=== PATIENT | male | born 1935 | race Caucasian/White ===

== ENCOUNTER 2021-01-28 17:29 | Inpatient (IN) ==
[2021-01-28] MEDS ORDERED: Isovue-370 500 ML BOTTLE IVP ONE (17:39)
[2021-01-28 17:49] LABS: Hematocrit 40.8 % (37.5-50.1); Hemoglobin 12.7 g/dL (12.9-16.9); Mean Corpuscular HGB Conc 31.1 g/dL (31.6-35.5); Mean Corpuscular Hemoglobin 29.9 pg (28.0-33.3); Platelet Count 258 K/mcL (140-400); Red Blood Count 4.25 M/mcL (4.19-5.50); Red Cell Distribution Width 14.1 % (11.5-14.5); White Blood Count 9.8 K/mcL (4.3-11.1)
[2021-01-28 17:56] LABS: INR 1.1; Prothrombin Time 12.5 Seconds (9.4-12.1)
[2021-01-28 17:58] LABS: Activated Partial Thrombo Time 31.8 Seconds (26.0-36.0)
[2021-01-28 18:05] LABS: BUN/Creatinine Ratio 16 (6-26); Blood Urea Nitrogen 33 mg/dL (8-23); Calcium 9.4 mg/dL (8.6-10.3); Carbon Dioxide 21 mEq/L (23-29); Chloride 104 mEq/L (98-107); Glucose 178 mg/dL (70-105); Osmolality,Calculated 292 (280-300); Potassium 4.8 mEq/L (3.5-5.1); Sodium 135 mEq/L (136-145); eGFR For African Americans 38 (> 60); eGFR For Non-African Americans 31 (> 60)
[2021-01-28 18:08] LABS: Troponin I < 0.03 ng/mL (< 0.04)
[2021-01-28] MEDS ORDERED: 0.9 % Sodium Chloride 1,000 ML IVC ONE (18:31)
[2021-01-28 18:37] LABS: Bilirubin,Urine Negative (Negative); Blood,Urine Negative (Negative); Clarity,Urine Clear (Clear); Color,Urine Light-Yellow (Yellow); Glucose,Urine (UA) 300 mg/dL (Normal); Hyaline Casts,Urine Few per lpf (None Seen); Ketones,Urine Negative (Negative); Leukocyte Esterase,Urine Negative (Negative); Mucus,Urine Few per lpf (None-Few); Nitrite,Urine Negative (Negative); PH,Urine 6.5 pH Units (5.0-8.0); Protein,Urine Negative (Neg-Trace); Specific Gravity,Urine > 1.030 (1.010-1.025); Urobilinogen,Urine Normal (Normal); WBC,Urine 0-3 per hpf (0-3)
[2021-01-28] MEDS ORDERED: *HR* Dextrose 50 % in Water (Vial) 50 ML VIAL IVP PRN (19:40)
[2021-01-28] MEDS ORDERED: D5% in Water 1,000 ML IVC PRN (19:40)
[2021-01-28] MEDS ORDERED: Dextrose Gel 15 GM/37.5 ML TUBE PO PRN ×2 (19:40)
[2021-01-28] MEDS ORDERED: Ondansetron 4 MG/2 ML VIAL IVP PRN (19:42)
[2021-01-28] MEDS ORDERED: Acetaminophen 325 MG TABLET PO PRN (19:42)
[2021-01-28] MEDS ORDERED: Naloxone 0.4 MG/ML INJ IVP PRN (19:42)
[2021-01-28] MEDS ORDERED: Melatonin 3 MG TABLET PO PRN (19:42)
[2021-01-28] MEDS ORDERED: Furosemide 20 MG/2 ML VIAL IVP ONE (20:28)
[2021-01-28] MEDS ORDERED: *HR* Metoprolol 5 MG/5 ML VIAL IVP PRN (20:39)
[2021-01-28 20:47] LABS: Estimated Average Glucose 180 mg/dl; Hemoglobin A1C 7.9 %
[2021-01-28] MEDS: Insulin LISPRO 300 UNITS/3 ML VIAL SUBQ SCH (20:48)
[2021-01-29 00:35] LABS: Basophils % 0.3 %; Eosinophils # 0.9 K/mcL (0.0-0.6); Eosinophils % 10.1 %; Hematocrit 37.4 % (37.5-50.1); Hemoglobin 11.6 g/dL (12.9-16.9); Immature Granulocytes % 0.6 % (0-4); Lymphocytes # 2.6 K/mcL (0.6-4.6); Lymphocytes % 29.3 %; Mean Corpuscular Hemoglobin 29.4 pg (28.0-33.3); Mean Corpuscular Volume 94.9 fL (83.0-100.0); Mean Platelet Volume 8.9 fL (9.4-12.4); Monocytes # 0.8 K/mcL (0.0-1.3); Monocytes % 9.2 %; Neutrophils # 4.5 K/mcL (1.6-8.9); Platelet Count 208 K/mcL (140-400); Red Blood Count 3.94 M/mcL (4.19-5.50); Red Cell Distribution Width 14.1 % (11.5-14.5); Segmented Neutrophils % 50.5 %; White Blood Count 8.9 K/mcL (4.3-11.1)
[2021-01-29 00:54] LABS: Calcium 9.1 mg/dL (8.6-10.3); Chol/HDL Ratio 6.6 (0-4.9); Potassium 4.6 mEq/L (3.5-5.1)
[2021-01-29] MEDS: Insulin LISPRO 300 UNITS/3 ML VIAL SUBQ SCH ×4 (07:28→20:51)
[2021-01-29] MEDS ORDERED: Perflutren Lipid Microsphere 1.3 ML in 0.9 % Sodium Chloride 8.7 ML IVP PRN ×2 (09:00→17:20)
[2021-01-29] MEDS: Aspirin Enteric Coated 81 MG Tablet PO SCH (09:33)
[2021-01-29] MEDS: amLODIPine 5 MG TABLET PO SCH (14:32)
[2021-01-30 05:36] LABS: Hematocrit 39.6 % (37.5-50.1); Hemoglobin 12.6 g/dL (12.9-16.9); Mean Corpuscular HGB Conc 31.8 g/dL (31.6-35.5); Mean Corpuscular Hemoglobin 30.2 pg (28.0-33.3); Mean Platelet Volume 8.9 fL (9.4-12.4); Platelet Count 209 K/mcL (140-400); Red Blood Count 4.17 M/mcL (4.19-5.50); Red Cell Distribution Width 14.1 % (11.5-14.5); White Blood Count 8.9 K/mcL (4.3-11.1)
[2021-01-30 05:56] LABS: Albumin/Globulin Ratio 1.5 (1.1-2.2); Bilirubin,Total 0.4 mg/dL (0.3-1.0); Calcium 9.5 mg/dL (8.6-10.3); Chol/HDL Ratio 7.1 (0-4.9); Globulin 2.7 g/dL (2.4-3.5); Potassium 4.6 mEq/L (3.5-5.1); Total Protein 6.7 g/dL (6.4-8.9)
[2021-01-30] MEDS: Insulin LISPRO 300 UNITS/3 ML VIAL SUBQ SCH ×2 (07:30→12:07)
[2021-01-30] MEDS ORDERED: Finasteride 5 MG TABLET PO SCH (09:00)
[2021-01-30] MEDS ORDERED: Fenofibrate 54 MG TABLET PO SCH (09:00)
[2021-01-30] MEDS ORDERED: lisinopriL 20 MG TABLET PO SCH (09:00)
[2021-01-30 10:05] LABS: Adenovirus Not Detected (Not Detect); Bordetella Pertussis Not Detected (Not Detect); Chlamydophila pneumoniae Not Detected (Not Detect); Coronavirus 229E Not Detected (Not Detect); Coronavirus HKU1 Not Detected (Not Detect); Coronavirus NL63 Not Detected (Not Detect); Coronavirus OC43 Not Detected (Not Detect); Human Metapneumovirus Not Detected (Not Detect); Human Rhinovirus/Enterovirus Not Detected (Not Detect); Influenza A Subtype 2009 H1 Not Detected (Not Detect); Influenza B Not Detected (Not Detect); Mycoplasma pneumoniae Not Detected (Not Detect); Parainfluenza Virus 1 Not Detected (Not Detect); Parainfluenza Virus 2 Not Detected (Not Detect); Parainfluenza Virus 3 Not Detected (Not Detect); Parainfluenza Virus 4 Not Detected (Not Detect); Respiratory Syncytial Virus Not Detected (Not Detect); SARS-CoV-2 Not Detected (Not Detect)
[2021-01-30] MEDS ORDERED: Lidocaine Viscous Oral Soln 15 ML SOLUTION MM PRN (10:26)
[2021-01-30] MEDS ORDERED: 0.9 % Sodium Chloride 500 ML IVC ONE (10:26)
[2021-01-30] MEDS ORDERED: *HR* FentaNYL (PF) 100 MCG/2 ML VIAL IVP PRN (10:26)
[2021-01-30] MEDS ORDERED: *HR* Midazolam HCl 5 MG/5 ML VIAL IVP PRN (10:26)
[2021-01-30] MEDS: Aspirin Enteric Coated 81 MG Tablet PO SCH (12:05)
[2021-01-30] MEDS: amLODIPine 5 MG TABLET PO SCH (12:05)
[2021-01-30 15:09] VITALS: BP 118/75
[2021-01-30] MEDS ORDERED: Apixaban 5 MG TABLET PO SCH (21:00)
== END 2021-01-30 16:34 | disposition home or self-care (01) | DRG 65 ==
LOC: 3BNU 17:29 → EMEROOARM 17:29 → SUATTDRO 19:35 → 3BNU 20:21
PROVIDERS: ADMIT Internal Medicine; ATTEND Internal Medicine

== ENCOUNTER 2021-02-22 11:28 | Inpatient (IN) ==
[2021-02-22] MEDS ORDERED: Aspirin 81 MG TAB.CHEW PO ONE (11:34)
[2021-02-22 12:18] LABS: Basophils % 0.3 %; Eosinophils # 0.7 K/mcL (0.0-0.6); Eosinophils % 7.1 %; Hematocrit 39.3 % (37.5-50.1); Hemoglobin 12.1 g/dL (12.9-16.9); Immature Granulocytes % 0.5 % (0-4); Lymphocytes # 2.1 K/mcL (0.6-4.6); Lymphocytes % 22.1 %; Mean Corpuscular HGB Conc 30.8 g/dL (31.6-35.5); Mean Corpuscular Hemoglobin 29.4 pg (28.0-33.3); Mean Corpuscular Volume 95.6 fL (83.0-100.0); Mean Platelet Volume 9.1 fL (9.4-12.4); Monocytes # 0.7 K/mcL (0.0-1.3); Monocytes % 6.9 %; Neutrophils # 6.1 K/mcL (1.6-8.9); Platelet Count 229 K/mcL (140-400); Red Blood Count 4.11 M/mcL (4.19-5.50); Red Cell Distribution Width 13.9 % (11.5-14.5); Segmented Neutrophils % 63.1 %; White Blood Count 9.7 K/mcL (4.3-11.1)
[2021-02-22 12:33] LABS: INR 1.5; Prothrombin Time 17.1 Seconds (9.4-12.1)
[2021-02-22 12:35] LABS: Activated Partial Thrombo Time 38.4 Seconds (26.0-36.0)
[2021-02-22 13:01] LABS: Albumin 4.5 g/dL (3.5-5.7); Albumin/Globulin Ratio 1.5 (1.1-2.2); Bilirubin,Direct 0.1 mg/dL (0.0-0.2); Bilirubin,Indirect 0.4 mg/dL (0.0-1.0); Bilirubin,Total 0.5 mg/dL (0.3-1.0); Calcium 9.6 mg/dL (8.6-10.3); Potassium 5.2 mEq/L (3.5-5.1); Total Protein 7.5 g/dL (6.4-8.9); Troponin I 0.05 ng/mL (< 0.04)
[2021-02-22 13:04] LABS: Bilirubin,Urine Negative (Negative); Blood,Urine Negative (Negative); Clarity,Urine Clear (Clear); Color,Urine Light-Yellow (Yellow); Glucose,Urine (UA) 500 mg/dL (Normal); Ketones,Urine Negative (Negative); Leukocyte Esterase,Urine Negative (Negative); Nitrite,Urine Negative (Negative); Protein,Urine Negative (Neg-Trace); RBC,Urine 0-3 per hpf (0-3); Specific Gravity,Urine 1.017 (1.010-1.025); Squamous Epithelial Cell,Urine Few per hpf (None-Few); Urobilinogen,Urine Normal (Normal); WBC,Urine 0-3 per hpf (0-3)
[2021-02-22] MEDS ORDERED: Acetaminophen 325 MG TABLET PO PRN (14:09)
[2021-02-22] MEDS ORDERED: Ondansetron ODT 4 MG TAB.RAPDIS SL PRN (14:09)
[2021-02-22] MEDS ORDERED: *HR* Heparin 5,000 UNIT/ML VIAL IVP PRN ×2 (14:12)
[2021-02-22] MEDS ORDERED: *HR* Heparin 5,000 UNIT/ML VIAL IVP ONE (14:12)
[2021-02-22] MEDS ORDERED: Heparin 25,000UNIT/250ML 1/2NS 25,000 UNIT/250 ML IV.SOLN IVC SCH ×2 (14:15→15:42)
[2021-02-22 14:57] LABS: Hemoglobin 11.9 g/dL (12.9-16.9); Mean Corpuscular HGB Conc 32.2 g/dL (31.6-35.5); Mean Corpuscular Hemoglobin 30.7 pg (28.0-33.3); Mean Corpuscular Volume 95.6 fL (83.0-100.0); Mean Platelet Volume 9.4 fL (9.4-12.4); Platelet Count 229 K/mcL (140-400); Red Blood Count 3.87 M/mcL (4.19-5.50); Red Cell Distribution Width 13.8 % (11.5-14.5); White Blood Count 9.1 K/mcL (4.3-11.1)
[2021-02-22 15:03] LABS: INR 1.4; Prothrombin Time 16.5 Seconds (9.4-12.1)
[2021-02-22 15:06] LABS: Heparin anti-factor XA UFH 1.95 IU/mL (0.30-0.70)
[2021-02-22] MEDS ORDERED: Dextrose Gel 15 GM/37.5 ML TUBE PO PRN ×2 (16:43)
[2021-02-22] MEDS ORDERED: *HR* Dextrose 50 % in Water (Vial) 50 ML VIAL IVP PRN (16:43)
[2021-02-22] MEDS ORDERED: D5% in Water 1,000 ML IVC PRN (16:43)
[2021-02-22] MEDS: Metoprolol XL (24 HR) Succ 25 MG TAB.ER.24H PO SCH (16:50)
[2021-02-22] MEDS: 0.9 % Sodium Chloride 1,000 ML IVC SCH (16:50)
[2021-02-22] MEDS: Dorzolamide/Timolol OPTH 10 ML BOTTLE BOTH EYES SCH ×2 (16:51→20:21)
[2021-02-22] MEDS: amLODIPine 5 MG TABLET PO SCH (17:35)
[2021-02-23 02:48] LABS: Hematocrit 37.4 % (37.5-50.1); Hemoglobin 11.3 g/dL (12.9-16.9); Mean Corpuscular HGB Conc 30.2 g/dL (31.6-35.5); Mean Corpuscular Hemoglobin 29.4 pg (28.0-33.3); Mean Corpuscular Volume 97.4 fL (83.0-100.0); Mean Platelet Volume 9.1 fL (9.4-12.4); Platelet Count 228 K/mcL (140-400); Red Blood Count 3.84 M/mcL (4.19-5.50); Red Cell Distribution Width 13.8 % (11.5-14.5); White Blood Count 9.2 K/mcL (4.3-11.1)
[2021-02-23 03:08] LABS: Calcium 9.3 mg/dL (8.6-10.3); Potassium 4.6 mEq/L (3.5-5.1)
[2021-02-23 03:11] LABS: Troponin I 5.92 ng/mL (< 0.04)
[2021-02-23] MEDS: 0.9 % Sodium Chloride 1,000 ML IVC SCH ×3 (05:42→20:45)
[2021-02-23] MEDS: Aspirin 81 MG TAB.CHEW PO SCH (07:57)
[2021-02-23] MEDS: Metoprolol XL (24 HR) Succ 25 MG TAB.ER.24H PO SCH (07:58)
[2021-02-23] MEDS: Finasteride 5 MG TABLET PO SCH (07:59)
[2021-02-23] MEDS: Insulin LISPRO 300 UNITS/3 ML VIAL SUBQ SCH ×3 (08:01→20:45)
[2021-02-23] MEDS: Dorzolamide/Timolol OPTH 10 ML BOTTLE BOTH EYES SCH ×3 (08:02→20:46)
[2021-02-23] MEDS: amLODIPine 5 MG TABLET PO SCH (08:12)
[2021-02-23] MEDS ORDERED: Perflutren Lipid Microsphere 1.3 ML in 0.9 % Sodium Chloride 8.7 ML IVP PRN (09:24)
[2021-02-23] MEDS ORDERED: Heparin 1,000 UNITS/500 mL 500 ML ONE (15:42)
[2021-02-23] MEDS ORDERED: ISOVUE-370 200 ML INFUS..BTL ONE (15:42)
[2021-02-23] MEDS ORDERED: *HR* Heparin 10,000 UNIT/10 ML VIAL ONE (15:42)
[2021-02-23] MEDS ORDERED: 0.9 % Sodium Chloride 2,000 ML ONE (15:43)
[2021-02-23] MEDS ORDERED: Nitroglycerin 1,000 MCG/5 ML VIAL IV ONE (15:43)
[2021-02-23] MEDS ORDERED: *HR* FentaNYL (PF) 100 MCG/2 ML VIAL ONE (16:24)
[2021-02-23] MEDS ORDERED: *HR* Midazolam HCl 2 MG/2 ML VIAL ONE (16:25)
[2021-02-24] MEDS: Insulin LISPRO 300 UNITS/3 ML VIAL SUBQ SCH ×5 (05:51→21:31)
[2021-02-24] MEDS: 0.9 % Sodium Chloride 1,000 ML IVC SCH (05:58)
[2021-02-24 08:22] LABS: Hematocrit 37.1 % (37.5-50.1); Hemoglobin 11.3 g/dL (12.9-16.9)
[2021-02-24 08:42] LABS: Potassium 4.9 mEq/L (3.5-5.1)
[2021-02-24] MEDS ORDERED: Apixaban 5 MG TABLET PO SCH (10:15)
[2021-02-24] MEDS ORDERED: *HR* Heparin 5,000 UNIT/ML VIAL IVP PRN ×2 (10:19)
[2021-02-24] MEDS: Aspirin 81 MG TAB.CHEW PO SCH (10:31)
[2021-02-24] MEDS: Metoprolol XL (24 HR) Succ 25 MG TAB.ER.24H PO SCH (10:31)
[2021-02-24] MEDS: Finasteride 5 MG TABLET PO SCH (10:31)
[2021-02-24] MEDS: amLODIPine 5 MG TABLET PO SCH (10:32)
[2021-02-24] MEDS: Isosorbide MONOnitrate (24 HR) 30 MG TAB.ER.24H PO SCH (10:32)
[2021-02-24] MEDS: Dorzolamide/Timolol OPTH 10 ML BOTTLE BOTH EYES SCH ×3 (10:34→21:31)
[2021-02-24] MEDS: Heparin 25,000UNIT/250ML 1/2NS 25,000 UNIT/250 ML IV.SOLN IVC SCH ×2 (10:36→10:50)
[2021-02-25 01:07] LABS: Calcium 8.5 mg/dL (8.6-10.3); Magnesium 1.6 mg/dL (1.6-2.6); Phosphorous 2.9 mg/dL (2.7-4.5); Potassium 4.4 mEq/L (3.5-5.1)
[2021-02-25] MEDS: Isosorbide MONOnitrate (24 HR) 30 MG TAB.ER.24H PO SCH (08:33)
[2021-02-25] MEDS: Aspirin 81 MG TAB.CHEW PO SCH (08:33)
[2021-02-25] MEDS: Finasteride 5 MG TABLET PO SCH (08:33)
[2021-02-25] MEDS: amLODIPine 5 MG TABLET PO SCH (08:34)
[2021-02-25] MEDS: Metoprolol XL (24 HR) Succ 25 MG TAB.ER.24H PO SCH (08:34)
[2021-02-25] MEDS: Insulin LISPRO 300 UNITS/3 ML VIAL SUBQ SCH (08:37)
[2021-02-25] MEDS: Dorzolamide/Timolol OPTH 10 ML BOTTLE BOTH EYES SCH (08:42)
[2021-02-25] MEDS ORDERED: lisinopriL 20 MG TABLET PO SCH (09:00)
[2021-02-25 10:50] LABS: Heparin anti-factor XA UFH 0.69 IU/mL (0.30-0.70)
[2021-02-25 10:54] LABS: Activated Partial Thrombo Time 73.3 Seconds (26.0-36.0)
[2021-02-25 11:44] VITALS: BP 115/48
== END 2021-02-25 13:35 | disposition home or self-care (01) | DRG 281 ==
LOC: 2NENU 11:28 → EMEROOARM 11:28 → 2NENU 15:50 → SUATTDRO 21:23
PROVIDERS: ADMIT Internal Medicine; ATTEND Internal Medicine

== ENCOUNTER 2022-07-24 11:27 | Inpatient (IN) ==
[2022-07-24] MEDS ORDERED: *HR* Labetalol 20 MG/4 ML SYRINGE IVP PRN (14:00)
[2022-07-24] MEDS: Aspirin Enteric Coated 81 MG Tablet PO SCH (15:00)
[2022-07-24] MEDS ORDERED: Ondansetron 4 MG/2 ML VIAL IVP PRN (15:13)
[2022-07-24] MEDS ORDERED: Acetaminophen 325 MG TABLET PO PRN (15:13)
[2022-07-24] MEDS ORDERED: Naloxone 0.4 MG/ML INJ IVP PRN (15:13)
[2022-07-24] MEDS ORDERED: *HR* Dextrose 50 % in Water (Syg) 50 ML SYRINGE IVP PRN (15:18)
[2022-07-24] MEDS ORDERED: D5% in Water 1,000 ML IVC PRN (15:18)
[2022-07-24] MEDS ORDERED: Dextrose Gel 15 GM/37.5 ML TUBE PO PRN ×2 (15:18)
[2022-07-24] MEDS: Insulin LISPRO 300 UNITS/3 ML VIAL SUBQ SCH ×2 (16:20→21:29)
[2022-07-24 17:35] LABS: Bilirubin,Urine Negative (Negative); Blood,Urine Negative (Negative); Clarity,Urine Clear (Clear); Color,Urine Light-Yellow (Yellow); Glucose,Urine (UA) 150 mg/dL (Normal); Ketones,Urine Negative (Negative); Leukocyte Esterase,Urine Negative (Negative); Nitrite,Urine Negative (Negative); Protein,Urine Trace mg/dL (Neg-Trace); RBC,Urine 0-3 per hpf (0-3); Specific Gravity,Urine 1.025 (1.010-1.025); Squamous Epithelial Cell,Urine Few per hpf (None-Few); Urobilinogen,Urine Normal (Normal); WBC,Urine 0-3 per hpf (0-3)
[2022-07-25 03:15] LABS: Hematocrit 37.5 % (37.5-50.1); Hemoglobin 11.5 g/dL (12.9-16.9); Mean Corpuscular HGB Conc 30.7 g/dL (31.6-35.5); Mean Corpuscular Hemoglobin 28.5 pg (28.0-33.3); Mean Corpuscular Volume 93.1 fL (83.0-100.0); Mean Platelet Volume 9.4 fL (9.4-12.4); Platelet Count 227 K/mcL (140-400); Red Blood Count 4.03 M/mcL (4.19-5.50); Red Cell Distribution Width 15.1 % (11.5-14.5); White Blood Count 7.6 K/mcL (4.3-11.1)
[2022-07-25 03:27] LABS: INR 1.1; Prothrombin Time 12.2 Seconds (9.4-12.1)
[2022-07-25 03:41] LABS: Calcium 9.2 mg/dL (8.6-10.3); Chol/HDL Ratio 5.6 (0-4.9); Potassium 4.2 mEq/L (3.5-5.1)
[2022-07-25 03:51] LABS: Thyroid Stimulating Hormone 2.918 mcIU/mL (0.340-5.600)
[2022-07-25 04:10] LABS: Estimated Average Glucose 183 mg/dl
[2022-07-25] MEDS: Insulin LISPRO 300 UNITS/3 ML VIAL SUBQ SCH ×4 (08:45→20:06)
[2022-07-25] MEDS: Dorzolamide/Timolol OPTH 10 ML BOTTLE BOTH EYES SCH ×3 (08:48→20:04)
[2022-07-25] MEDS: Aspirin Enteric Coated 81 MG Tablet PO SCH (08:48)
[2022-07-26 05:30] LABS: Estimated Average Glucose 180 mg/dl; Hemoglobin A1C 7.9 %
[2022-07-26 07:46] VITALS: PULSE 60
[2022-07-26] MEDS: Insulin LISPRO 300 UNITS/3 ML VIAL SUBQ SCH ×2 (08:25→13:39)
[2022-07-26] MEDS: Aspirin Enteric Coated 81 MG Tablet PO SCH (08:35)
[2022-07-26] MEDS: Dorzolamide/Timolol OPTH 10 ML BOTTLE BOTH EYES SCH (08:35)
[2022-07-26] MEDS ORDERED: amLODIPine 5 MG TABLET PO SCH (09:00)
[2022-07-26] MEDS ORDERED: Finasteride 5 MG TABLET PO SCH (09:00)
[2022-07-26 11:14] VITALS: O2SAT 95
[2022-07-26 11:34] LABS: Calcium 9.7 mg/dL (8.6-10.3); Potassium 4.8 mEq/L (3.5-5.1)
[2022-07-26 14:57] VITALS: BP 137/66; TEMP 97.9
== END 2022-07-26 17:36 | disposition home health service (06) | DRG 65 ==
LOC: 3BNU → SUATTDRO 13:26
PROVIDERS: ADMIT Internal Medicine; ATTEND Internal Medicine